=== PATIENT | female | born 2000 | race Caucasian/White ===

== ENCOUNTER 2019-05-27 14:40 | Emergency (ER) | payer MEDICAID, OTHER ==
[~2019-05-27] VITALS: Ht 157.5 cm; Wt 128.8 kg
[2019-05-27 15:07] VITALS: BP 128/61
--- NOTE | 2019-05-27 15:11 | NUR ---
PT TO ER LOBBY. PT ALERT AND AWAKE
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
== END 2019-05-27 15:57 | disposition home or self-care (01) ==
LOC: MED 14:40
DX: S41.012D Laceration without foreign body of left shoulder, subsequent encounter (principal); Z48.02 Encounter for removal of sutures; X58.XXXD Exposure to other specified factors, subsequent encounter
CPT/HCPCS: 99282